=== PATIENT | male | born 1965 | race Caucasian/White ===

== ENCOUNTER → 2017-05-27 | Day surgery (SDC) | payer OTHER ==
[~2017-05-27] VITALS: Ht 182.9 cm; Wt 88.0 kg
[~2017-05-27] MED LIST: CHOL200025 PO; LISI-567 PO; Sodium Chloride LOK Flush 10 mL Syringe IV PRN; ZOLE4INF IV; [UNRECOGNIZED DRUG - OTHER] PO; fentaNYL-PF 50 mCg/mL 2 mL Inj IVPUSH PRN
[2017-05-27 08:22] VITALS: BP 152/95; PULSE 60; RESP 14; O2SAT 99
[2017-05-27] MEDS: 0.9% Sodium Chloride 1,000 ML IV SCH ×2 (09:19→09:30)
[2017-05-27 09:41] VITALS: BP 132/58; PULSE 67; RESP 14; O2SAT 97
[2017-05-27 09:44] VITALS: BP 125/73; PULSE 72; RESP 14; O2SAT 97
[2017-05-27 09:53] VITALS: BP 125/70; PULSE 63; RESP 14; O2SAT 96
--- NOTE | 2017-05-27 10:11 | ENDO ---
[address] [address] ENDOSCOPY PROCEDURE PATIENT: MARINA ELIZABETH : 1965 MR#: [id number] ADMIT: 05/27/2017 JOB ID: [id number] TYPE OF PROCEDURE: Colonoscopy INDICATION: Chronic diarrhea. Patient's ASA classification is 2. Mallampati score is 2. MEDICATIONS: 1. Versed 7 mg. 2. Fentanyl 125 mcg. INSTRUMENT USED: PCF-H180AL PREP QUALITY: Fair. PROCEDURE DETAILS: After informed consent was obtained, the patient was brought into the GI suite, where he was placed on oxygen via nasal cannula and monitored with continuous pulse oximeter, telemetry, and blood pressure monitoring. A time-out was performed. Then, he was placed in a left lateral decubitus position and medications were administered for sedation. Digital rectal exam was performed and was unremarkable. The colonoscope was then inserted into the rectum and advanced under direct visualization to the terminal ileum which was identified by the presence of the ileocecal valve and appendiceal orifice. Once the terminal ileum was reached, the colonoscope was withdrawn back into the rectum. Mucosa and lumen were examined. In the rectum, retroflexion was performed. Following retroflexion, remaining air in the rectum was suctioned, and procedure was completed. FINDINGS: 1. Normal-appearing terminal ileum. Multiple random biopsies were obtained. 2. In the cecum there is a diminutive polyp that was removed with cold biopsy forceps. 3. The colon mucosa from cecum to rectum appeared unremarkable. Multiple random biopsies were obtained throughout the entire colon. IMPRESSION: Cecal polyp. RECOMMENDATIONS: 1. Await biopsy results. 2. Follow up in GI clinic. COMPLICATIONS: None. ESTIMATED BLOOD LOSS: Less than 5 mL.
--- NOTE | 2017-05-28 17:28 | PATH ---
SURGICAL PATHOLOGY Attending Physician:Maya Ward CASE STATUS: Signed Out PATIENT NAME: MARINA ELIZABETH PID: [id number] : 1965 DATE COLLECTED:05/27/2017 16:44 SPECIMEN: 1: Colon, Polyp 2: Ileum, Biopsy 3: Colon, Biopsy CLINICAL HISTORY: 1). CECUM POLYP 2). TERMINAL ILEUM BIOPSY 3). RANDOM COLON BIOPSY FINAL DIAGNOSIS: 1. Cecal Polyp, Biopsy: Tubular adenoma. 2. Terminal Ileum, Biopsy: Ileal mucosa with no diagnostic abnormality. Negative for active inflammation, granulomata, dysplasia or malignancy. 3. Random Colon, Biopsies: Colonic mucosa with no diagnostic abnormality. Negative for active of microscopic colitis. Negative for granulomata, dysplasia or malignancy. ICD10: D12.0 R19.7 GROSS DESCRIPTION: The specimen is received in three formalin filled containers labeled with the patient's name. 1). The specimen is labeled "cecum polyp" and consists of a 0.3 x 0.2 x 0.2 CM portion of tissue which is entirely submitted in cassette 1A. 2). The specimen is labeled "terminal ileum" and consists of a 0.4 x 0.2 x 0.1 CM portion of tissue which is entirely submitted in cassette 2A. 3). The specimen is labeled "random colon" and consists of multiple portions of tissue which aggregate to 0.6 x 0.4 x 0.2 CM. The specimen is entirely submitted in cassette 3A. 05/27/2017DC ICD-9 CODES: CPT CODES: 1: 45508 2: 73561 3: 98545 Electronically Signed Out Jose E Epps MD, Ph.D. [facility] [address], [place] [address] Technical component performed at [facility], [facility] [address], [place], [address]
== END | disposition home or self-care (01) ==
LOC: END 00:42
PROVIDERS: ATTEND Internal Medicine Gastroenterology
DX: R19.7 Diarrhea, unspecified (principal); D12.0 Benign neoplasm of cecum; C91.41 Hairy cell leukemia, in remission; C90.01 Multiple myeloma in remission; D64.89 Other specified anemias
CPT/HCPCS: 45380; G0500; J2250; J3010; J7030